=== PATIENT | male | born 1965 | race African-American/Black ===

== ENCOUNTER 2018-05-05 13:24 | Observation (INO) | payer SELFPAY ==
[~2018-05-05] VITALS: Ht 172.7 cm; Wt 80.0 kg
[2018-05-05 04:32] VITALS: BP 122/73
--- NOTE | 2018-05-05 13:31 | NUR ---
TO TX ROOM WITH STEADY GAIT
--- NOTE | 2018-05-05 13:34 | NUR ---
STATES SHE GAVE HIM ZOFRAN ODT X 3 TODAY AND PT STILL VOMITED
--- NOTE | 2018-05-05 14:20 | NUR ---
PATIENT REQUESTING PAIN MEDICATIONS OF ABD PAIN 05/27. INFORMED.
[2018-05-05 14:52] LABS: HEMATOCRIT 42.6 % (39.0-50.0); HEMOGLOBIN 14.6 g/dl (14.0-18.0); IMMATURE GRANULOCYTES 0.5 % (0.0-5.0); MEAN CELL VOLUME 95.3 fL CALC (80.0-100.0); MEAN CORPUSCULAR HGB 32.7 pG CALC (26.0-32.0); MEAN CORPUSCULAR HGB CONC 34.3 g/L CALC (32.0-36.0); NEUT# 7.01 thou/uL (1.82-7.42); RED BLOOD COUNT 4.47 mill/uL (4.70-6.10); RED CELL DISTRI WIDTH 12.7 % (11.5-15.5)
[2018-05-05 14:55] LABS: URINE BILIRUBIN - DIPSTICK NEGATIVE (NEGATIVE); URINE BLOOD DIPSTICK NEGATIVE (NEGATIVE); URINE CLARITY CLEAR; URINE COLOR YELLOW; URINE GLUCOSE - DIPSTICK NEGATIVE (NEGATIVE); URINE KETONE NEGATIVE (NEGATIVE); URINE LEUK ESTERASE NEGATIVE (NEGATIVE); URINE NITRITE - DIPSTICK NEGATIVE (Negative); URINE PH 7.5 (4.5-8.0); URINE PROTEIN - DIPSTICK NEGATIVE (NEG-TRACE); URINE UROBILINOGEN - DIPSTICK 0.2 E.U./dL (0.2)
[2018-05-05 14:56] LABS: BARBITURATES NEGATIVE (NEGATIVE); COCAINE NEGATIVE (NEGATIVE); METHADONE NEGATIVE (NEGATIVE); TETRAHYDROCANNABIONOL POSITIVE (NEGATIVE); TRICYLIC ANTIDEPRESSANTS NEGATIVE (NEGATIVE)
[2018-05-05 14:57] LABS: OXCYCODONE NEGATIVE (NEGATIVE)
[2018-05-05 15:03] LABS: ALBUMIN 4.4 g/dL (3.2-5.0); ALKALINE PHOSPHATASE 54 u/l (38-126); ANION GAP 13 (6-22 (CALC)); BILIRUBIN, TOTAL 0.9 mg/dL (0.0-1.4); BUN 15 mg/dL (9-20); BUN/CREATININE RATIO 17 (12-20 (CALC)); CARBON DIOXIDE 27 mmol/l (22-30); CHLORIDE 107 mmol/l (95-108); CREATININE 0.9 mg/dL (0.7-1.3); GFR > 60 ML/MIN (>=60 (CALC)); GFR FOR AFR.AMER. > 60 ML/MIN (>=60 (CALC)); LIPASE 99 u/l (23-300); POTASSIUM 4.7 mmol/l (3.5-5.1); SGOT/AST 23 u/l (17-59); SGPT/ALT 29 u/l (21-72); SODIUM 143 mmol/l (137-146); TOTAL PROTEIN 7.9 g/dL (6.3-8.2)
--- NOTE | 2018-05-05 15:20 | NUR ---
APPROX. 50 ML OF YELLOW FLUID EMESIS NOTED IN EMESIS BAG. PATIENT PREVIOUSLY MEDICATED WITH 12.5 MG OF PHENERGAN IV.
--- NOTE | 2018-05-05 16:05 | NUR ---
AT BEDSIDE TO DISCUSS RESULTS AND PLAN OF CARE WITH PATIENT AND . VERBAL UNDERSTANDING.
--- NOTE | 2018-05-05 16:58 | NUR ---
PATIENT RETURNS FROM RADIOLOGY IN STABLE CONDITION.
--- NOTE | 2018-05-05 17:35 | NUR ---
AT BEDSIDE TO DISCUSS RESULTS AND PLAN OF CARE.
--- NOTE | 2018-05-05 17:49 | NUR ---
PATIENT SEEN STICKING FINGERS DOWN HIS THROAT TO VOMIT
--- NOTE | 2018-05-05 18:18 | NUR ---
PATIENT MEDICATED WITH 2 MG OF MORPHINE IV SLOW PUSH. PATIENT TOLERATED WELL. INFORMED NOT TO GET BY BY HIMSELF. VERBAL UNDERSTANDING, CALL LIGHT AT BEDSIDE. WILL CONTINUE TO MONITOR.
--- NOTE | 2018-05-05 18:35 | NUR ---
PATIENT REPORTS ABD PAIN 7/10 AT THIS TIME.
--- NOTE | 2018-05-05 18:36 | NUR ---
ATTEMPT MADE TO CALL REPORT, SPOKE TO KIM. [facility] NURSE NOT AVAILABLE FOR REPORT. WILL CALL BACK.
--- NOTE | 2018-05-05 18:54 | NUR ---
REPORT GIVEN TO TEVIN PATEL.
--- NOTE | 2018-05-05 18:59 | NUR ---
Admission Note Report Given to: SBAR PRINTED TO FLOOR Transported by: Wheelchair X Stretcher Transported with: X Nurse Transporter X Patent IV O2 Tariff Inspector
--- NOTE | 2018-05-05 19:00 | NUR ---
PT ARRIVED TO UNIT VIA STRETCHER WITH ER STAFF AND SPOUSE. ALERT AND ORIENTED. C/O RIGHT SIDED ABDOMINAL PAIN AND STATES THAT MORPHINE GIVEN IN ER WAS INEFFECTIVE. RESPIRATIONS EVEN AND UNLABORED ON ROOM AIR. ORIENTED TO ROOM AND CALL LIGHT SYSTEM. PLAN OF CARE DISCUSSED. PT NOT VERY INTERESTED IN EDUCATION AT THIS TIME AND KEEPS BLANKET PULLED OVER HIS HEAD. WILL ATTEMPT LATER. ENCOURAGED TO VERBALIZE CONCERNS. STATES UNDERSTANDING. SAFETY MEASURES IN PLACE. CALL LIGHT WITHIN REACH.
[2018-05-05 19:15] VITALS: BP 133/75
--- NOTE | 2018-05-05 23:09 | NUR ---
NEW ORDER FOR DILAUDID WAS ADMINISTERED WITH GOOD EFFECT; PT MUCH MORE TALKATIVE AND LAUGHING STATING HE FEELS BETTER AFTER THE DILAUDID, BUT THE NAUSEA REMAINS. ZOFRAN GIVEN AT THIS TIME AND IV FLUIDS INITIATED. PT RESPONSIVE TO EDUCATION AND DISCUSSION. AMBULATES INDEPENDENTLY. IV SITE APPEARS HEALTHY AND FLUSHES. SAFETY MEASURES IN PLACE. CALL LIGHT WITHIN REACH.
[2018-05-06 00:16] VITALS: BP 93/59
--- NOTE | 2018-05-06 04:21 | NUR ---
PT ASLEEP AT THIS TIME WITH NO SIGNS OF DISTRESS. RESPIRATIONS EVEN AND UNLABORED ON ROOM AIR. REMAINS AT BEDSIDE. NO ACUTE CHANGES IN CONDITION THROUGHOUT THE NIGHT. SAFETY MEASURES IN PLACE. CALL LIGHT WITHIN REACH.
[2018-05-06 06:03] LABS: IMMATURE GRANULOCYTES 0.2 % (0.0-5.0); MEAN CELL VOLUME 95.3 fL CALC (80.0-100.0); MEAN CORPUSCULAR HGB 32.8 pG CALC (26.0-32.0); MEAN CORPUSCULAR HGB CONC 34.4 g/L CALC (32.0-36.0); NEUT# 5.51 thou/uL (1.82-7.42); RED BLOOD COUNT 3.84 mill/uL (4.70-6.10); RED CELL DISTRI WIDTH 12.5 % (11.5-15.5)
[2018-05-06 06:05] LABS: HEMATOCRIT 36.6 % (39.0-50.0); HEMOGLOBIN 12.6 g/dl (14.0-18.0)
[2018-05-06 06:18] LABS: ANION GAP 12 (6-22 (CALC)); BUN 10 mg/dL (9-20); BUN/CREATININE RATIO 13 (12-20 (CALC)); CARBON DIOXIDE 23 mmol/l (22-30); CHLORIDE 108 mmol/l (95-108); CREATININE 0.7 mg/dL (0.7-1.3); GFR > 60 ML/MIN (>=60 (CALC)); GFR FOR AFR.AMER. > 60 ML/MIN (>=60 (CALC)); SODIUM 139 mmol/l (137-146)
[2018-05-06 06:23] LABS: POTASSIUM 3.7 mmol/l (3.5-5.1)
--- NOTE | 2018-05-06 07:10 | NUR ---
REPORT RECEIVED FROM JORGERN;PT RESTING IN BEDSIDE COT,PT REPORTS ABDOMINAL PAIN,PAIN SCALE AND SCHEDULE EDUCATED AND PT VERBALIZES UNDERSTANDING;RESPIRATIONS EVEN AND UNLABORED ON RA;POC DISCUSSED ;IV SITE APPEARS PATENT TO LAC;ENCOURAGED PT TO CALL FOR ASSISTANCE IF NEEDED;CALL LIGHT IN REACH;WILL CONTINUE TO MONITOR
[2018-05-06 08:39] VITALS: BP 109/63
--- NOTE | 2018-05-06 08:40 | NUR ---
PT RESTING IN BEDSIDE COT REFUSING TO GET INTO HOSPITAL BED;VS OBTAINED AND ASSESSMENT COMPLETED;PT REPORTS RIGHT SIDED ABD PAIN RATING 7/10 ON THE PAIN SCALE BUT DENIES NAUSEA;PT MEDICATED WITH DILAUDID 1MG IVP,WILL MONITOR FOR EFFECTIVENESS;RESPIRATIONS EVEN AND UNLABORED ON RA,CLEAR LUNG SOUNDS NOTED;ABDOMEN SOFT ON PALPATION AND ACTIVE IN ALL 4 QUADRANTS,TENDERNESS NOTED TO RIGHT UPPER AND LOWER QUADS;STRONG PEDAL PULSES;#20G TO RAC INFUSING NS @ 100ML/HR,SITE APPEARS HEALTHY;URINAL EMPTIED OF 300CC OF CLEAR/YELLOW URINE;PT DENIES ANY ADDITONAL NEEDS;ENCOURAGED TO CALL FOR ASSISTANCE IF NEEDED;CALL LIGHT WITHIN REACH;WILL CONTINUE TO MONITOR
--- NOTE | 2018-05-06 12:00 | NUR ---
PT RESTING AT BEDSIDE WITH SPOUSE;PT REPORTS ABDOMINAL PAIN TO HAVE DECREASED TO A 4/10 ON THE PAIN SCALE;RESPIRATIONS EVEN AND UNLABORED ON RA;IV SITE REMAINS PATENT TO LAC INFUSING NS @ 100ML/HR;PT DENIES ANY OTHER CURRENT NEEDS;ENCOURAGED TO CALL FOR ASSISTANCE IF NEEDED;CALL LIGHT IN REACH;WILL CONTINUE TO MONITOR
--- NOTE | 2018-05-06 12:40 | NUR ---
IV SITE FOUND DISLODGED WITH CATHETER INTACT;NEW #22G STARTED TO LEFT HAND ON 1ST ATTEMPT BY KELVIN GOMEZ;GOOD BLOOD RETURN NOTED.
[2018-05-06 15:36] VITALS: BP 111/67
--- NOTE | 2018-05-06 15:40 | NUR ---
PT RESTING IN SEMI FOWLERS POSITION;IV SITE REMAINS PATENT INFUSING TO LEFT HAND;PT DENIES ANY CURRENT PAIN OR NEEDS;RESPIRATIONS EVEN AND UNLABORED ON RA;ASSESSMENT UNCHANGED AT THIS TIME;ENCOURAGED TO CALL FOR ASSISTANCE IF NEEDED;CALL LIGHT IN REACH;WILL CONTINUE TO MONITOR
[2018-05-06 16:01] LABS: CHOLESTEROL HDL RATIO 3.6 (<4.4 (CALC))
--- NOTE | 2018-05-06 19:30 | NUR ---
PATIENT RESTING IN BED WATCHING TV AT THIS TIME-AWAKE ALERT AND ORIENTEDX3. IVF NS PATENT AND INFUSING VIA LEFT HAND SITE-SITE APPEARS HEALTHY AT THIS TIME. PATIENT WITH NO COMPLAINTS AT THIS TIME. DENIES ANY DIFFICULTY WITH URINATION. STATES VOIDING CLEAR YELLOW URINE. LAST BM WAS YESTERDAY. ABD IS SOFT WITH BS+. LUNGS ARE CLEAR. NO PEDAL EDEMA NOTED. PULSE PRESENT AND STRONG. TAKING PO AND TOLERATING WELL. SAFETY PRECAUTIONS REINFORCED. CALL LIGHT IN REACH. WILL CONT TO MONITOR.
[2018-05-06 19:36] VITALS: BP 119/55
--- NOTE | 2018-05-06 23:13 | NUR ---
PATIENT RESTING IN BED-NO COMPLAINTS AT THIS TIME. S/O AT BEDSIDE. IVF PATENT AND INFUSING LEFT HAND AT 100CC/HR. SITE REMAINS HEALTHY. CALL LIGHT IN REACH. WILL CONT TO MONITOR.
--- NOTE | 2018-05-07 03:50 | NUR ---
APPEARS SLEEPING ON COT WITH S/O. RESP ARE EVEN AND UNLABORED IVF PATENT AND INFUSING AT 100CC/HR. CALL LIGHT IN REACH. WILL CONT TO MONITOR.
[2018-05-07 04:18] VITALS: BP 118/53
[2018-05-07 05:29] LABS: HEMATOCRIT 38.3 % (39.0-50.0); HEMOGLOBIN 13.3 g/dl (14.0-18.0); MEAN CELL VOLUME 96.5 fL CALC (80.0-100.0); MEAN CORPUSCULAR HGB 33.5 pG CALC (26.0-32.0); MEAN CORPUSCULAR HGB CONC 34.7 g/L CALC (32.0-36.0); RED BLOOD COUNT 3.97 mill/uL (4.70-6.10); RED CELL DISTRI WIDTH 12.6 % (11.5-15.5)
[2018-05-07 07:45] VITALS: BP 108/67
--- NOTE | 2018-05-07 08:00 | NUR ---
PT AWAKE, ALERT, ORIENTED X 3, FEELS MUCH IMPROVED SINCE ARRIVAL TO FLOOR. LUNGS CLEAR, ABDOMEN SOFT, SKIN INTACT, VSS. NO FURTHER EPISODES OF NAUSEA OR VOMITING. PT TOLERATES SOFT DIET.
[2018-05-07] MEDS ORDERED: CIPROFLOXACN500 MG PO (11:36)
--- NOTE | 2018-05-07 11:59 | NUR ---
PT VERBALIZES UNDERSTANDING OF DC INSTRUCTIONS, AMBULATES TO LOBBY, CONDITION STABLE, NO COMPLAINTS OF NAUSEA/VOMITING/DIARRHEA.
== END 2018-05-07 11:50 | disposition home or self-care (01) | DRG 392 ==
LOC: ED 13:24 → ED-I 17:48 → ED 18:02 → MS2 18:03
PROVIDERS: Emergency Medicine; Nurse Practitioner Family; ADMIT Internal Medicine; ATTEND Internal Medicine
DX: K52.9 Noninfective gastroenteritis and colitis, unspecified (principal); F17.210 Nicotine dependence, cigarettes, uncomplicated; Q63.1 Lobulated, fused and horseshoe kidney; N20.0 Calculus of kidney; K40.90 Unilateral inguinal hernia, without obstruction or gangrene, not specified as recurrent
CPT/HCPCS: G0378

== ENCOUNTER 2018-07-25 12:10 | Observation (INO) | payer SELFPAY ==
[~2018-07-25] VITALS: Ht 172.7 cm; Wt 79.5 kg
[~2018-07-25 12:10] MED LIST: CIPROFLOXACN500 MG PO
--- NOTE | 2018-07-25 12:23 | NUR ---
PT AMBULATED TO ROOM 6 WITH STEADY GAIT
--- NOTE | 2018-07-25 12:23 | NUR ---
PT AMBULATED TO ROOM 9
[2018-07-25 12:54] LABS: URINE BILIRUBIN - DIPSTICK NEGATIVE (NEGATIVE); URINE BLOOD DIPSTICK SMALL (NEGATIVE); URINE COLOR YELLOW; URINE GLUCOSE - DIPSTICK NEGATIVE (NEGATIVE); URINE KETONE NEGATIVE (NEGATIVE); URINE LEUK ESTERASE NEGATIVE (NEGATIVE); URINE NITRITE - DIPSTICK NEGATIVE (Negative); URINE PROTEIN - DIPSTICK NEGATIVE (NEG-TRACE); URINE SPECIFIC GRAVITY 1.025; URINE UROBILINOGEN - DIPSTICK 0.2 E.U./dL (0.2)
[2018-07-25 12:55] LABS: HEMATOCRIT 41.7 % (39.0-50.0); HEMOGLOBIN 14.5 g/dl (14.0-18.0); IMMATURE GRANULOCYTES 0.3 % (0.0-5.0); MEAN CELL VOLUME 94.3 fL CALC (80.0-100.0); MEAN CORPUSCULAR HGB 32.8 pG CALC (26.0-32.0); MEAN CORPUSCULAR HGB CONC 34.8 g/L CALC (32.0-36.0); NEUT# 7.1 thou/uL (1.82-7.42); RED BLOOD COUNT 4.42 mill/uL (4.70-6.10); RED CELL DISTRI WIDTH 12.8 % (11.5-15.5)
[2018-07-25 13:00] LABS: URINE CLARITY CLEAR; URINE RBC 0-2 RBC/hpf (0-5)
[2018-07-25 13:15] LABS: ALBUMIN 4.3 g/dL (3.2-5.0); ALKALINE PHOSPHATASE 50 u/l (38-126); ANION GAP 12 (6-22 (CALC)); BILIRUBIN, TOTAL 0.9 mg/dL (0.0-1.4); BUN 18 mg/dL (9-20); BUN/CREATININE RATIO 21 (12-20 (CALC)); CARBON DIOXIDE 27 mmol/l (22-30); CHLORIDE 105 mmol/l (95-108); CREATININE 0.9 mg/dL (0.7-1.3); GFR > 60 ML/MIN (>=60 (CALC)); GFR FOR AFR.AMER. > 60 ML/MIN (>=60 (CALC)); LIPASE 59 u/l (23-300); POTASSIUM 4.4 mmol/l (3.5-5.1); SGOT/AST 18 u/l (17-59); SODIUM 140 mmol/l (137-146); TOTAL PROTEIN 7.5 g/dL (6.3-8.2)
--- NOTE | 2018-07-25 15:15 | NUR ---
spouse or sig other at nursing station. states " he has psych issues and he's going to tell you that he's not feeling better and that he needs to stay in the hospital. he has a temper so i wanted to let you know ahead of time. He also sticks his finger down his throat to make himself throw up. he said it makes him feel better"
--- NOTE | 2018-07-25 15:25 | NUR ---
pt lying on left side, c/o continued nausea. states " i'm sweating, i feel nauseated and i feel like i'm going to if you send me home" vital signs all within normal parameters. afebrile. spouse at bedside.
--- NOTE | 2018-07-25 16:22 | NUR ---
[employer] Press Offbearer spoke with ED nurse and stated that Patient should be admitted as Observational status - Dr. Cochran Aware.
--- NOTE | 2018-07-25 16:26 | NUR ---
PT SLEEPING ON RT SIDE. IV MED INFUSING. AWAKENS TO TACTILE STIMULI. BP STABLE 114/70. NO C/O AT THIS TIME.
--- NOTE | 2018-07-25 16:33 | NUR ---
DR ALMENDAREZ AT BEDSIDE TO DISCUSS DC INSTRUCTIONS. PT STATES " I STILL FEEL SO BAD, I THINK THAT I'M GOING TO , I HAVE NAUSEA, I'M SWEATING" AFTER THOROUGH CONVERSATION WITH PT, DECISION MADE TO ADMIT PT TO OBSERVATION. DR CAPONE PAGED AT THIS TIME.
--- NOTE | 2018-07-25 16:40 | NUR ---
PT WITH COVERS OVER HIS HEAD. THREE BLANKETS. PT REMOVED BLANKET FROM HEAD AND STATED SEE HOW I AM SWEATING. I ADVISED PT THAT THREE BLANKETS WOULD DO THAT TO HIM. ADVISED THAT I WILL PROVIDE LIKE SHEET. PT IN AGREEMENT.
--- NOTE | 2018-07-25 16:54 | NUR ---
Pt medicated for subjective vomiting. Pt reported increase pain. EDP notified. New orders received.
--- NOTE | 2018-07-25 17:05 | NUR ---
ATTEMPTED TO CALL REPORT, NO SUCCESS. INFORMED THAT NURSE WILL CALL ME BACK FOR REPORT.
[2018-07-25 17:18] LABS: BARBITURATES NEGATIVE (NEGATIVE); COCAINE NEGATIVE (NEGATIVE); METHADONE NEGATIVE (NEGATIVE); OXCYCODONE NEGATIVE (NEGATIVE); TETRAHYDROCANNABIONOL POSITIVE (NEGATIVE); TRICYLIC ANTIDEPRESSANTS NEGATIVE (NEGATIVE)
--- NOTE | 2018-07-25 17:29 | NUR ---
Admission Note Report Given to: WILLI ABARCA Transported by: Wheelchair X Stretcher Transported with: X Nurse Transporter X Patent IV O2 Group Art Supervisor
--- NOTE | 2018-07-25 17:35 | NUR ---
PT CAME FROM ER VIA STRETCHER BY TEVIN SALES. GIRLFRIEND AT SIDE. SAFETY PRECAUTIONS REINFORCED AND CALL LIGHT IN REACH.
--- NOTE | 2018-07-25 17:50 | NUR ---
ASSESMENT DONE RESPS EVEN AND UNLABORED. PT GIRLFRIEND IS HELPED ANSWER QUESTIONS FOR PART A. PT IS DROSWY BUT A&O X3. # 20 LAC THAT APPEARS HEALTHY. PT DENIES NEEDS AT THIS TIME. CALL LIGHT IN REACH.
[2018-07-25 19:32] VITALS: BP 136/61
--- NOTE | 2018-07-25 20:00 | NUR ---
PATIENT RESTING IN BED AT THIS TIME-IV FOUND DISLODGED WITH CATH INTACT. NEW IV SITE STARTED TO RIGHT FOREARM-#22 WITH GOOD BLOOD RETURN. IVF NS PATENT AND INFUSING AT 100CC/HR. NO COMPLAINTS AT THIS TIME. CALL LIGHT IN REACH. WILL CONT TO MONITOR.
--- NOTE | 2018-07-26 02:58 | NUR ---
APPEARS SLEEPING AT THIS TIME WITH SHEET OVER HIS HEAD. IVF PATENT AND INFUSING VIA LEFT FOREARM SITE AT 100CC/HR. RESP ARE EVEN AND UNLABORED. CALL LIGHT IN REACH. WILL CONT TO MONITOR.
[2018-07-26 04:00] VITALS: BP 104/52
--- NOTE | 2018-07-26 06:00 | NUR ---
PATIENT RESTING IN BED. VOIDED 600CC OF DARK MAGDI URINE. PATIENT C/O NAUSEA AND MEDICATED WITH ZOFRAN 4MG IVP FOR NAUSEA. IVF PATENT AND INFUSING AT 100CC/HR. CALL LIGHT IN REACH. WILL CONT TO MONITOR.
--- NOTE | 2018-07-26 07:10 | NUR ---
REPORT RECEIVED BY REBECCA. PT IS SLEEPING IN BED WITH NO S/S OF DISTRESS NOTED. CALL LIGHT IN REACH.
--- NOTE | 2018-07-26 08:00 | NUR ---
ASSESSMENT DONE PT IS A&O X3. RESPS EVEN AND UNLABORED. PT STATED HE IS STARTING TO FEEL BETTER. PAIN IS 0/10. PT STATED THAT ZOFRAN HELPED WITH HIS NAUSEA. NS 100ML/HR INFUSING WELL. SAFETY PRECAUTIONS REINFORCED AND CALL LIGHT IN REACH.
[2018-07-26 08:19] VITALS: BP 109/65
[2018-07-26 11:37] VITALS: BP 156/75
--- NOTE | 2018-07-26 12:00 | NUR ---
PT STATED HE HAS SOME PAIN IN ABD 6 THAT COMES AND GOES. PT DENIES PAIN MEDICATION AT THIS TIME. NO S/S OF DISTRESS NOTED. CALL LIGHT IN REACH.
[2018-07-26 15:37] VITALS: BP 121/72
--- NOTE | 2018-07-26 15:58 | NUR ---
PT IS AMBULATING IN THE HALLWAY. PT DENIES PAIN AT THIS TIME. PT IS REQUESTING A SODA. PT DENIES ANY OTHER NEEDS AT THIS TIME.
--- NOTE | 2018-07-26 19:30 | NUR ---
PATIENT UP AND ABOUT AMBULATING IN THE SMITH-STEADY ON HIS FEET. NO COMPLAINTS AT THIS TIME. PATIENT IS ALERT AND ORIENTED. SALINE LOCK TO RIGHT FOREARM INTACT AND APPEARS HEALTHY AT THIS TIME. TAKING PO FLUIDS WITHOUT ANY DIFFICULTY AND TOLERATING WELL. DENIES N/V, NO ABD PAIN. CALL LIGHT IN REACH. WILL CONT TO MONITOR.
[2018-07-26 20:00] VITALS: BP 131/80
--- NOTE | 2018-07-26 21:01 | NUR ---
PATIENT RESTING IN BED WITH O2 VIA NASAL CANNULA IN PLACE. C/O POST-OP RIGHT KNEE PAIN-07/27. MEDICATED WITH DILAUDID 1MG IVP FOR PAIN. CALL LIGHT IN REACH. WILL CONT TO MONITOR.
--- NOTE | 2018-07-26 23:31 | NUR ---
PATIENT RESTING IN BED WITH NO COMPLAINTS AT THIS TIME, IV ANTIBIOTICS INFUSING ORDERED. PATIENT DENIES ANY PAIN, NAUSEA OR VOMITTING TONIGHT. NO BM SINCE BEFORE COMING TO THE HOSPITAL. ABD IS SOFT WITH BS+. INSTRUCTED PATIENT THAT WE NEED STOOL SPEC WHEN HE IS ABLE TO PROVIDE. VERBALIZES UNDERSTANDING. VOIDING QS YELLOW URINE IN URINAL. SAFETY PRECAUTIONS REINFORCED. CALL LIGHT IN REACH. WILL CONT TO MONITOR.
--- NOTE | 2018-07-27 01:54 | NUR ---
PATIENT IS AWAKE ALERT WITH NO COMPLAINTS AT THIS TIME ON HIS CELL PHONE. CALL LIGHT IN REACH. WILL CONT TO MONITOR.
[2018-07-27 04:47] VITALS: BP 118/62
[2018-07-27 05:30] LABS: ANION GAP 11 (6-22 (CALC)); BUN 11 mg/dL (9-20); BUN/CREATININE RATIO 14 (12-20 (CALC)); CARBON DIOXIDE 25 mmol/l (22-30); CHLORIDE 109 mmol/l (95-108); CREATININE 0.8 mg/dL (0.7-1.3); GFR > 60 ML/MIN (>=60 (CALC)); GFR FOR AFR.AMER. > 60 ML/MIN (>=60 (CALC)); MAGNESIUM 1.9 mg/dL (1.6-2.3); POTASSIUM 3.8 mmol/l (3.5-5.1); SODIUM 141 mmol/l (137-146)
--- NOTE | 2018-07-27 05:30 | NUR ---
PATIENT RESTING QUIETLY IN BED WITH NO COMPLAINTS AT THIS TIME. IV FLAGYL HUNG ORDERED VIA RIGHT FOREARM SITE. CALL LIGHT IN REACH. WILL CONT TO MONITOR.
[2018-07-27 07:45] VITALS: BP 113/64
--- NOTE | 2018-07-27 07:45 | NUR ---
PT SITTING UP IN BED. VOICING NO COMPLAINTS. VS STABLE. PT READIED FOR BREAKFAST. CHATTY AND APPRECIATIVE. CALL NOONAN IN REACH WILL CONTINUE TO MONITOR
--- NOTE | 2018-07-27 08:00 | NUR ---
PT WALKING AROUND ROOM. ASSESMENT COMPLETED AT THIS TIME(SEE INTERVENTIONS). LUNG SOUNDS CLEAR. HEART SOUNDS NORMAL. NO SWELLING OR EDEMA. BS SOUNDS ACTIVE. #22 IN RFA FLUSHES WELL, NO EDEMA OR REDNESS NOTED. PT VOICING NO COMPLAINTS. CALL NOONAN IN REACH. WILL CONTINUE TO MONITOR.
--- NOTE | 2018-07-27 10:25 | NUR ---
PT RESTING QUIETLY IN BED. WILL CONTINUE TO MONITOR
--- NOTE | 2018-07-27 13:44 | NUR ---
PT GIVEN D/C INSTRUCTIONS. VERBALIZES UNDERSTANDING.#22 IN THE LFA D/C AND INTACT.PT AMBULATED WITH STEADY GAIT.
== END 2018-07-27 13:44 | disposition home or self-care (01) | DRG 392 ==
LOC: ED 12:10 → ED-I 16:25 → ED 16:49 → MS2 16:50
PROVIDERS: Family Medicine; Nurse Practitioner Family; ADMIT Internal Medicine; ATTEND Internal Medicine
PROC: 3E0234Z Introduction of Serum, Toxoid and Vaccine into Muscle, Percutaneous Approach (ICD-10-PCS; principal; 2018-07-26)
DX: K52.9 Noninfective gastroenteritis and colitis, unspecified (principal); Q63.1 Lobulated, fused and horseshoe kidney; N20.0 Calculus of kidney; F17.210 Nicotine dependence, cigarettes, uncomplicated; K40.90 Unilateral inguinal hernia, without obstruction or gangrene, not specified as recurrent; Z23 Encounter for immunization
CPT/HCPCS: G0378; Q9967; S0164